=== PATIENT | female | born 1950 | race Caucasian/White ===

== ENCOUNTER 2020-03-21 14:38 | Emergency (ER) | payer OTHER ==
--- NOTE | 2020-03-21 14:42 | PDOC ---
Rapid Medical Evaluation Time Seen by Provider: 03/21/20 14:40 Medical Evaluation: 03/21/20 14:40 I have performed a brief in-person evaluation of this patient. The patient presents with a chief complaint of:R knee pain/swelling x 6 days. H/o arthritis, finished tramadol last week. Took naproxen today w/ no relief. No f/c. No trauma. H/o HTN and HLD Pertinent physical exam findings:stable, NAD I have ordered the following:nothing The patient will proceed to the ED for further evaluation. Discharge Disposition - Diagnosis Knee pain Qualifiers: Chronicity: acute Laterality: right Qualified Code(s): M25.561 - Pain in right knee - Referrals - Patient Instructions - Post Discharge Activity
[2020-03-21 14:44] VITALS: BP 179/83; PULSE 85; TEMP 98.3; BMI 39.0
--- NOTE | 2020-03-21 15:33 | PDOC ---
History of Present Illness - General Chief Complaint: Pain Stated Complaint: RT KNEE PAIN Time Seen by Provider: 03/21/20 14:40 - History of Present Illness Initial Comments: 03/21/20 15:31 69-year-old female with a past medical history of hypertension diabetes and dyslipidemia presents for evaluation of right knee pain. Known osteoarthritis underwent gel injections without much relief she comes in today with an exacerbation. No systemic symptoms Past History - Medical History Allergies/Adverse Reactions: Allergies Allergy/AdvReac Type Severity Reaction Status Date / Time No Known Allergies Allergy Verified 03/21/20 14:44 COPD: No HTN: Yes Hypercholesterolemia: Yes - Surgical History Abdominal Surgery: Yes - Psycho-Social/Smoking History Smoking History: Never smoked - Substance Abuse Hx (Audit-C & DAST Scrn) How often the patient has a drink containing alcohol: Never Score: In Men: 4 or > Positive; In Women: 3 or > Positive: 0 Screen Result (Pos requires Nsg. Audit-10AR): Negative Review of Systems - Review of Systems Constitutional: No: Chills, Diaphoresis, Fever, Night Sweats Musculoskeletal: Yes: Joint Pain *Physical Exam - Vital Signs Last Vital Signs Temp Pulse Resp BP Pulse Ox 98.3 F 85 18 179/83 H 100 03/21/20 14:41 03/21/20 14:41 03/21/20 14:41 03/21/20 14:41 03/21/20 14:41 - Physical Exam 03/21/20 15:32 Right knee skin color and temperature normal. Scant intra-articular effusion extensor mechanism is intact. Range of motion 0-90 beyond that causes pain. Diffuse tenderness out of proportion to the examination no instability thigh and calf soft nontender no gross sensorimotor deficits negative straight leg raise test neurovascular intact Medical Decision Making - Medical Decision Making 03/21/20 15:32 Exacerbation of right knee osteoarthritis return to orthopedic surgery consider cortisone injection versus other interventions 03/21/20 15:32 Patient took Tylenol today. I advised her to avoid anti-inflammatories because of her hypertension. I have reviewed the pathophysiology with the patient. They are in agreement with the treatment plan all questions were answered to their satisfaction. Understanding for follow-up without fail was also conveyed to the patient. Again they are in agreement. Discharge - Discharge Information Problems reviewed: Yes Clinical Impression/Diagnosis: Knee pain Qualifiers: Chronicity: acute Laterality: right Qualified Code(s): M25.561 - Pain in right knee Condition: Stable Disposition: HOME - Admission No - Follow up/Referral Referrals: Allyson Murcia MD [Primary Care Provider] - Vic Phan DO [Staff Physician] - - Patient Discharge Instructions - Post Discharge Activity
== END 2020-03-21 15:36 | disposition home or self-care (01) ==
LOC: JERFT 14:38
DX: M25.561 Pain in right knee (principal)
CPT/HCPCS: 99282-25

== ENCOUNTER 2020-07-09 08:06 | Inpatient (IN) | payer OTHER ==
--- OUTSIDE RECORDS SUMMARY | 2020-06-25 08:46 | XMS ---
:1950 Author Organization [facility] Support Name Relationship Address Phone RE Unavailable Unavailable Unavailable PIERRE SCOTT DAUGHTER [address] [place] [address] PIERRE SCOTT Child [address] [place] [address] Re-disclosure Warning The records that you are about to access may contain information from federally- assisted alcohol or drug abuse programs. If such information is present, then the following federally mandated warning applies: This information has been disclosed to you from records protected by federal confidentiality rules (42 CFR part 2). The federal rules prohibit you from making any further disclosure of this information unless further disclosure is expressly permitted by the written consent of the person to whom it pertains or as otherwise permitted by 42 CFR part 2. A general authorization for the release of medical or other information is NOT sufficient for this purpose. The Federal rules restrict any use of the information to criminally investigate or prosecute any alcohol or drug abuse patient.The records that you are about to access may contain highly sensitive health information, the redisclosure of which is protected by Article 27-F of the [facility] Public Health law. If you continue you may haveaccess to information: Regarding HIV / AIDS; Provided by facilities licensed or operated by the [facility] Office of Mental Health; or Provided by the [facility] Office for People With Developmental Disabilities. If such information is present, then the following [facility] mandated warning applies: This information has been disclosed to you from confidential records which are protected by state law. State law prohibits you from making any further disclosure of this information without the specific written consent of the person to whom it pertains, or as otherwise permitted by law. Any unauthorized further disclosure in violation of state law may result in a fine or snf sentence or both. A general authorization for the release of medical or other information is NOT sufficient authorization for further disclosure. Insurance Providers Payer name Policy type Policy ID Covered Covered democrat's Policy P jordy / Coverage democrat ID relationship to [facility] Inf ormation type henrandez MEDICAID [id number] SP [id number] [facility] [id number] SP [id number] MEDICARE
[2020-07-05 15:52] VITALS: BMI 41.0
--- OUTSIDE RECORDS SUMMARY | 2020-07-09 08:11 | XMS ---
:1950 Author Organization [facility] Support Name Relationship Address Phone RE Unavailable Unavailable Unavailable PIERRE SCOTT DAUGHTER [address] [phone] [place] [address] PIERRE SCOTT Child [address] [place] [address] Re-disclosure Warning The records that you are [...] is protected by Article 27-F of the [facility] Public Health law. If you continue you may haveaccess to information: Regarding HIV / AIDS; Provided by facilities licensed or operated by the [facility] Office of Mental Health; or Provided by the [facility] Office for People With Developmental Disabilities. If such information is present, then the following [facility] mandated warning applies: This information has been [...] law may result in a fine or half-way sentence or both. A general authorization for the release of medical or other information is NOT sufficient authorization for further disclosure. Insurance Providers Payer name Policy type Policy ID Covered Covered libertarian's Policy P jordy / Coverage libertarian ID relationship to [employer] ormation type hernandez [employer] [id number] SP [id number] MEDICARE MEDICAID [id number] SP [id number] [employer] [id number] SP [id number] MEDICARE Results ID Date Data Source [id number] 07/05/2020 12:24:00 PM EDT [facility] Name Value Range Interpretation Description Data Sup porting Code Source(s) Document(s ) SARS [facility] coronavirus 2 RNA This lab was ordered by BECCA ram [facility] and reported by [facility]. Procedure
[2020-07-09] MEDS ORDERED: VANCOMYCIN 1,000 MG VIAL (RESTRICTED TO ID ONLY) ONE ×2 (08:45→09:13)
[2020-07-09] MEDS ORDERED: ceFAZolin SODIUM 1 GM VIAL ONE (08:45)
[2020-07-09] MEDS ORDERED: PROPOFOL 20 ML ONE ×4 (08:45→13:16)
[2020-07-09] MEDS ORDERED: SODIUM CHLORIDE 0.9% P/F 10 ML VIAL IJ ONE ×2 (08:49→09:07)
[2020-07-09] MEDS ORDERED: MIDAZOLAM HCL 2 MG/2 ML SINGLE DOSE VIAL ONE ×3 (09:06→11:35)
[2020-07-09] MEDS ORDERED: BUPIVACAINE LIPOSOME/PF (EXPAREL) 266 MG/20 ML VIAL ONE (09:07)
--- NOTE | 2020-07-09 09:53 | HP ---
History & Physical Update - History History: No Change - Physical Physical: No Change - Assessment Assessment: No Change - Plan Plan: No Change
[2020-07-09] MEDS ORDERED: ACETAMINOPHEN INJECTION 100 ML IVPB ONE (10:15)
[2020-07-09] MEDS ORDERED: DEXAMETHASONE SOD PHOSPHATE 4 MG/1 ML VIAL ONE (10:41)
[2020-07-09] MEDS ORDERED: ONDANSETRON 4 MG/2 ML VIAL ONE ×3 (10:41→14:05)
[2020-07-09] MEDS ORDERED: PHENYLEPHRINE HCL 10 MG/1 ML SINGLE DOSE VIAL ONE (11:12)
[2020-07-09] MEDS ORDERED: VANCOMYCIN 1,000 MG VIAL (RESTRICTED TO ID ONLY) IVPB ONE ×2 (12:46→13:10)
[2020-07-09] MEDS ORDERED: TRANEXAMIC ACID 1000 MG/10 ML VIAL ONE (13:01)
[2020-07-09] MEDS ORDERED: LIDOCAINE HCL/PF 2% SDV 5ML VIAL ONE (13:22)
[2020-07-09] MEDS: HYDROmorphone HCL 0.5 MG/0.5 ML SYRINGE ONE ×2 (14:05→15:20)
[2020-07-09] MEDS ORDERED: HYDROmorphone HCL 0.5 MG/0.5 ML SYRINGE ONE ×2 (14:05→14:58)
[2020-07-09] MEDS ORDERED: oxyCODONE HCL 5 MG TABLET PO PRN ×2 (14:06)
[2020-07-09] MEDS ORDERED: ONDANSETRON 4 MG/2 ML VIAL IVPUSH PRN ×2 (14:06→14:13)
[2020-07-09] MEDS ORDERED: HYDROmorphone HCl 2 MG/ML VIAL IVPUSH PRN ×2 (14:08→14:11)
[2020-07-09] MEDS ORDERED: MAG HYDROX/AL HYDROX/SIMETH 30 ML UNIT-DOSE CUP PO PRN (14:13)
[2020-07-09] MEDS ORDERED: ACETAMINOPHEN 325 MG TABLET (FP) PO SCH (14:15)
[2020-07-09] MEDS ORDERED: LACTATED RINGERS SOLUTION 1,000 ML IV SCH (14:15)
--- NOTE | 2020-07-09 14:34 | OPR ---
TITLE OF OPERATION: Right Total Knee Arthroplasty PREOPERATIVE DIAGNOSIS: Right Knee Osteoarthritis POSTOPERATIVE DIAGNOSIS: Right Knee Osteoarthritis SURGEON: Vic Phan DO HOT BALLER: Garo John DO ANESTHESIA: Spinal anesthesia with regional block SPECIMEN: bone cuts PROSTHETIC DEVICE/IMPLANT: [place] Triathlon X3 Asymmetric patella size, 9mm thickness; Triathlon Posterior Stabilized Femur Size 2; Triathlon Tibial Baseplate Size 3; Triathlon Tibial Bearing insert - PS - 16 mm thickness. COMPLICATIONS: none EBL: 150mL TOURNIQUET TIME: 120 mins INDICATIONS FOR SURGERY: Dione Parnell is a 69 year old female who presented in the preoperative setting with a chief complaint of severe right knee osteoarthritis with severe knee pain, and a notable varus deformity. The patient was initially treated non- operatively with injections, medications, and physical therapy, but continued to have severe pain and ambulatory dysfunction. She was therefore indicated for a right total knee replacement with MAKOplasty robotic navigation. The risks and benefits of surgery and anesthesia were discussed in detail including but not limited to infection, continued pain, bleeding, blood clot, scarring/arthrofibrosis, damage to vessels and nerves, instability or loosening of implant, difficulty ambulating, alla-prosthetic fracture, failure to obtain the desired result, failure to heal, failure to return to significant activity, need for additional surgery in the future. Understanding the risks and benefits, the patient opted to proceed with surgical management. SURGEON'S NARRATIVE: On the day of surgery, the patient was taken to the operating room and placed on the OR table. Spinal anesthesia was administered by the anesthesiologist. The patient was then positioned supine on the table, and all bony prominences were padded. The knee was then prepped and draped in the usual sterile fashion, and IV antibiotics were given for infection prophylaxis. A surgical time-out was then performed with the team, and the patient's identity, procedure, side, availability of implants, and the administration of antibiotics were performed. With the knee flexed, two parallel bicortical self-drilling pins were placed in the tibial diaphysis after making stab incisions and bluntly dissecting down to bone. Two pins were then placed in the distal supracondylar femur. The knee was exanguinated and tourniquet inflated. A midline incision was then made and carried down through the subcutaneous fat to the underlying retinaculum. A medial parapatellar arthrotomy was performed. This was followed by a subperiosteal dissection of the tissue off the proximal, medial tibia. A portion of the fat pad was removed from under the patellar tendon, and a small portion of fat was excised off the distal supracondylar femur. Electrocautery was used to achieve hemostasis. The knee was then flexed further and the anterior horn of the lateral meniscus was released from the midline. Next, the anterior and posterior cruciate ligaments were transected. Nodular synovitis and Grade 4 changes were noted diffusely throughout the knee. A synovectomy was performed. Femoral and tibial checkpoints were then placed in the appropriate location using a drill. The [email or web address] navigation arrays were attached to the femoral and tibial pins and the lower extremity was then registered to the robotic naviga tion device using various joint movements, as well as inputting several dozen reference points. The knee was then taken through a full range of motion with a corrective force applied. Alignment in varus and valgus, as well as flexion and extension, and soft tissue balance was measured in various positions. The navigation device showed a numerical and graphic representation of the soft tissue balance. The components were repositioned virtually using the software until optimal soft tissue balance was achieved on the screen. Once this was accomplished, the final plan was saved and sent to the robot. Self-retaining retractors were then placed at the joint line for exposure and protection of the collateral ligaments. The robot was brought into the sterile field and registered with the navigation device. The robotic arm with attached oscillating saw blade was then used to perform femoral and tibial bone cuts as per the saved software plan. The femoral box cut was made using the appropriatel y - sized manual cutting guide. The knee was then irrigated. Trial components were placed and the knee was taken through a full range of motion to assess soft tissue balance and alignment. The range of motion was found to be excellent and the soft tissue balance was optimal and according to plan. The knee was then put into extension and the patella everted. The synovium around the patella was circumscribed with electrocautery. A caliper was used to measure the patellar thickness, and a saw was then used to resect the patella using a patella resection guide. The cut was then sized and drilled for the appropriate patellar button, with care taken to medialize it. A trial patella was then placed and the knee was again taken through a full range of motion. The knee was found to have both good balance and good patellar tracking. All of the components were removed except the tibial base plate. The appropriate instrumentation was used to drill and punch the proximal tibia for the keel of the final component. All bony surfaces were cleaned with the pulsatile lavage and dried. Bone cement was then prepared on the back table, and the final components were cemented in place in the usual fashion. Extruded cement was removed. The polyethylene trial was placed, the knee was put into extension, and axial pressure was applied for compression while the cement hardened. The patellar button was similarly cemented into place. Once the cement had hardened, the knee was taken through a full range of motion to assess stability, balance, and patellar tracking. Multiple polyethlene trials including a TS insert were trialed. A 16mm polyethylene insert was found to be optimal and the trial polyethylene was exchanged for the appropriately sized real implant. An approximately three-minute diluted betadine soak was performed, followed by thorough pulsatile irrigation with normal saline. One gram of vancomycin powder was then spread around the joint tissues. A periarticular injection was used to locally infiltrate the capsular tissues surrounding the implant and prosthesis. Once this was done, the tourniquet was let down and all bleeders were cauterized. The parapatellar incision was closed with #1 Vicryl suture in a simple stitch fashion, and the subcuticular skin was closed with 0 Vicryl, 2-0 Vicryl suture, and the skin with delroy. The tibial and femoral pins were removed and the incisions were irrigated thoroughly, then closed with 3-0 Monocryl suture. A sterile Aquacell dressing and DEAN bandage was placed and the patient was placed in VONDA stockings and bilateral SCD's. She tolerated procedure well and arrived in recovery in stable condition. Postoperative Crews: Pain Control DVT Prophylaxis (ASA 325MG BID x 6 weeks; SCDs while in bed, encourage early ambulation) WBAT/Physical Therapy daily D/C Delroy POD 14 F/U Daily AM Labs Will see her in my office on POD 14 for a post-operative visit, wound check, and staple removal Medical management Dispo Planning
[2020-07-09 14:40] LABS: MCH 25.8 pg (25.7-33.7); MCHC 31.5 g/dl (32.0-36.0); MEAN PLT VOLUME 9.1 fl (7.5-11.1); PLATELET COUNT 419 K/MM3 (134-434); RBC 4.26 M/mm3 (3.60-5.2); RDW 16.7 % (11.6-15.6); WHITE BLOOD COUNT 11.9 K/mm3 (4.0-10.8)
--- NOTE | 2020-07-09 14:43 | HP ---
CHIEF COMPLAINT: Right knee pain Ortho: Dr. Phan HISTORY OF PRESENT ILLNESS: 69 year-old female with a PMH significant for HTN, HLD, GERD, and right knee osteoarthritis s/p right total knee arthroplasty today with Dr. Phan. Recent Travel: No PAST MEDICAL HISTORY: Hypertension Hyperlipidemia GERD Osteoarthritis PAST SURGICAL HISTORY: Breast reconstruction Cholecystectomy Gastric bypass Tubal ligation Social History: single, lives in an apartment, 3 children Smoking: quit 2009 Alcohol: no Drugs: no Family history: mother hypertension/arthritis/artificial heart valve/varicose veins; father unknown Allergies No Known Drug Allergies Allergy (Verified 07/05/20 15:35) HOME MEDICATIONS: Home Medications Medication Instructions Recorded Acetaminophen [Tylenol] 650 mg PO ASDIR PRN 07/05/20 Atorvastatin Ca [Lipitor] 20 mg PO DAILY 07/05/20 Gabapentin 300 mg PO TID PRN 07/05/20 Lisinopril/Hydrochlorothiazide 1 each PO DAILY 07/05/20 [Lisinopril-Hctz 10-12.5 mg Tab] Mv-Mn/FA/Coq10/Lycopene/Lutein 1 each PO BID 07/05/20 [Theragran-M Premier 50+ Caplet] Omeprazole 20 mg PO DAILY 07/05/20 REVIEW OF SYSTEMS: unable to obtain, patient seen in PACU, somnolent from anesthesia PHYSICAL EXAMINATION Vital Signs - 24 hr 07/09/20 07/09/20 08:26 14:00 Temperature 98 F 98.7 F Pulse Rate 94 H 98 H Respiratory 18 16 Rate Blood Pressure 118/75 117/74 O2 Sat by Pulse 96 97 Oximetry (%) GENERAL: Somnolent but easily arousable, following commands, moving all extremities HEAD: Normal with no signs of trauma. EYES: Pupils equal, round and reactive to light, extraocular movements intact, sclera anicteric, conjunctiva clear. No lid lag. LUNGS: Breath sounds equal, clear to auscultation bilaterally. No wheezes, and no crackles. No accessory muscle use. HEART: Regular rate and rhythm, normal S1 and S2 ABDOMEN: Soft, nontender, not distended UPPER EXTREMITIES: 2+ pulses, warm, well-perfused. No cyanosis. No clubbing. No peripheral edema. RIGHT LOWER EXTREMITY: 2+ pulses, warm, well-perfused. Surgical dressings c/d/i, ice packs NEUROLOGICAL: Cranial nerves II-XII intact. Pre op BUN15 Cr 0.9 Hgb 10.9 Intra op EBL 150mL ASSESSMENT/PLAN: 69 year-old female with a PMH significant for HTN, HLD, GERD, and right knee osteoarthritis s/p right total knee arthroplasty today with Dr. Phan. Right total knee arthroplasty --POD #0 --perioperative antibiotics per surgery --pain management per surgery --ASA 325mg BID --protonix --bowel regimen --incentive spirometry Hypertension --continue Lisinopril 10mg daily; hold HCTZ Hyperlipidemia -continue atorvastatin GERD --protonix FEN Fluids: LR@125mL/hr Electrolytes: replete as indicated Nutrition: regular diet DVT prophylaxis: OOB, ambulation, SCDs, TEDs, ASA 325mg BID Physical therapy Dispo: continues to require inpatient care. Full code. Family Medical History Family History: As Documented Visit type - Medication Review Med list reviewed for High Risk Meds patients 65 and older: Yes - Emergency Visit Emergency Visit: No - New Patient This patient is new to me today: Yes Date on this admission: 07/10/20 - Critical Care Critical Care patient: No
[2020-07-09] MEDS ORDERED: GABAPENTIN 300 MG CAPSULE PO PRN (14:50)
[2020-07-09] MEDS ORDERED: HYDROmorphone *PCA* 10MG/50ML DISP.SYRIN PCA SCH ×2 (15:15→16:11)
[2020-07-09] MEDS ORDERED: PCA PUMP NR ONE (15:18)
[2020-07-09] MEDS ORDERED: NALOXONE HCL 0.4 MG/ML VIAL ONE (16:49)
[2020-07-09] MEDS: ACETAMINOPHEN 1000 MG/100 ML VIAL (NON FORMULARY) IVPB SCH (18:19)
[2020-07-09] MEDS: CEFAZOLIN 2 GM/D5W 2 GM/50 ML ML IVPB SCH (18:19)
[2020-07-09] MEDS: CELECOXIB 200 MG CAPSULE PO SCH (21:27)
[2020-07-09] MEDS: GABAPENTIN 300 MG CAPSULE PO SCH (21:27)
[2020-07-09] MEDS: SENNOSIDES/DOCUSATE COMBO (SENNA PLUS) TABLET (UD) PO SCH (21:27)
[2020-07-09] MEDS ORDERED: oxyCODONE HCL 10 MG SUSTAINED ACTING TABLET PO SCH (22:00)
[2020-07-09] MEDS: oxyCODONE HCL 5 MG TABLET PO PRN (22:55)
[2020-07-10] MEDS: ACETAMINOPHEN 1000 MG/100 ML VIAL (NON FORMULARY) IVPB SCH ×3 (01:20→15:14)
[2020-07-10] MEDS: CEFAZOLIN 2 GM/D5W 2 GM/50 ML ML IVPB SCH ×2 (01:22→09:49)
--- NOTE | 2020-07-10 07:42 | PN ---
Progress Note (short form) - Note Progress Note: ORTHOPEDIC SURGERY PROGRESS NOTE Department of Orthopedic Surgery SUBJECTIVE No acute events overnight. No complaints currently. Denies chest pain, shortness of breath, or calf pain. No nausea or vomiting. Tolerating oral intake. Pain control difficult overnight, but improving. PHYSICAL EXAMINATION General: Alert, oriented, cooperative and no distress. Lower Extremity: Dressing/brace intact; No drainage. Skin intact, no lesions, rashes or ulcers noted. Muscle mass equal and symmetric to contralateral side. No atrophy noted. No masses or effusions noted. EHL/TA/GS motor intact; SILT distally; 2+ DP pulses; Cap refill brisk. DVT Exam: No evidence of DVT seen on physical exam; No cords or calf tenderness; No significant calf/ankle edema. Intake & Output 07/08/20 07/09/20 07/10/20 23:59 23:59 23:59 Intake Total 1300 Output Total 150 300 Balance 1150 -300 Intake: IV 1300 Output: Urine 300 Void 300 Estimated Blood Loss 150 Other: Voiding Method Bedpan Toilet Weight 210 lb Height 5 ft Body Mass Index (BMI) 41.0 Weight Measurement Method Standing Scale Active Medications Generic Name Dose Route Start Last Admin Trade Name Freq PRN Reason Stop Dose Admin Acetaminophen 1,000 mg 07/09/20 19:00 07/10/20 06:26 Ofirmev Injection - IVPB 07/10/20 13:01 1,000 mg Q6H GAYATRI Administration Al Hydroxide/Mg Hydroxide 30 ml 07/09/20 14:13 Mylanta Oral Suspension - PO Q4H PRN DYSPEPSIA Aspirin 325 mg 07/10/20 22:00 Asa - PO BID GAYATRI Atorvastatin Calcium 20 mg 07/10/20 22:00 Lipitor - PO HS GAYATRI Celecoxib 200 mg 07/09/20 22:00 07/09/20 21:27 Celebrex - PO 200 mg BID GAYATRI Administration Gabapentin 300 mg 07/09/20 22:00 07/09/20 21:27 Neurontin - PO 07/12/20 21:59 300 mg BID GAYATRI Administration Gabapentin 300 mg 07/09/20 14:50 Neurontin - PO TID PRN PAIN Lactated Ringer's 1,000 mls @ 75 mls/hr 07/09/20 14:15 Lactated Ringers Solution IV ASDIR GAYATRI Cefazolin Sodium/Dextrose 2 gm in 50 mls @ 200 mls/hr 07/09/20 18:30 07/10/20 01:22 Ancef 2 Gm Premixed Ivpb - IVPB 07/10/20 10:14 200 mls/hr Q8H-IV GAYATRI Administration Lisinopril 10 mg 07/10/20 10:00 Prinivil PO DAILY PENDING SALE TO [facility] Multivitamins/Minerals/Vitamin C 1 tab 07/10/20 10:00 Tab-A-Vit - PO DAILY PENDING SALE TO [facility] Ondansetron HCl 4 mg 07/09/20 14:13 07/09/20 14:15 Zofran Injection IVPUSH 4 mg Q6H PRN Administration NAUSEA Oxycodone HCl 5 mg 07/09/20 16:41 Roxicodone - PO Q3H PRN PAIN LEVEL 1-5 Oxycodone HCl 10 mg 07/09/20 16:41 07/09/20 22:55 Roxicodone - PO 10 mg Q3H PRN Administration PAIN LEVEL 6-10 Pantoprazole Sodium 40 mg 07/10/20 10:00 Protonix - PO DAILY PENDING SALE TO [facility] Senna/Docusate Sodium 2 tablet 07/09/20 22:00 07/09/20 21:27 Pericolace - PO 2 tablet BID GAYATRI Administration Vital Signs (last) Temp Pulse Resp BP Pulse Ox 98.4 F 109 H 16 101/48 L 100 07/10/20 06:00 07/10/20 06:00 07/10/20 06:00 07/10/20 06:00 07/10/20 06:00 IMAGING Postoperative antibiotics show metal implants in appropriate alignment with no signs of loosening. ASSESSMENT AND PLAN Dione Parnell is a 69 year old female status post right total knee arthroplasty. POD#1. - FU AM labs - Postoperative antibiotics complete - Pain control: Transition to oral pain medications - DVT prophylaxis - Ice/Elevation - Elevate HOB, encourage oral intake - Appreciate medical management (Nutrition optimization, decubitus precautions heel/sacrum) - PT/OT; WBAT - Dispo planning
[2020-07-10 08:21] LABS: HEMATOCRIT 28.4 % (32.4-45.2); MCH 26.2 pg (25.7-33.7); MCHC 31.8 g/dl (32.0-36.0); MEAN CELL VOLUME 82.4 fl (80-96); PLATELET COUNT 327 K/MM3 (134-434); RBC 3.45 M/mm3 (3.60-5.2); RDW 16.3 % (11.6-15.6); WHITE BLOOD COUNT 12.8 K/mm3 (4.0-10.8)
[2020-07-10] MEDS: LACTATED RINGERS SOLUTION 1,000 ML IV SCH ×2 (08:21→15:13)
[2020-07-10 08:30] LABS: CALCIUM 8.2 mg/dl (8.5-10); CREATININE 1.6 mg/dl (0.55-1.3); MAGNESIUM 1.8 mg/dL (1.8-2.4); POTASSIUM 4.2 mmol/L (3.5-5.1)
[2020-07-10] MEDS: CELECOXIB 200 MG CAPSULE PO SCH ×2 (09:48→21:26)
[2020-07-10] MEDS: GABAPENTIN 300 MG CAPSULE PO SCH ×2 (09:48→21:27)
[2020-07-10] MEDS: SENNOSIDES/DOCUSATE COMBO (SENNA PLUS) TABLET (UD) PO SCH ×2 (09:49→21:27)
[2020-07-10] MEDS: PANTOPRAZOLE 40 MG TABLET PO SCH (09:49)
[2020-07-10] MEDS: MULTIVITAMINS (DAILY MVI) TABLET (FP) PO SCH (09:49)
[2020-07-10] MEDS: LISINOPRIL 10 MG TABLET PO SCH (09:50)
--- NOTE | 2020-07-10 09:59 | PN ---
Physical Exam: SUBJECTIVE: Patient seen and examined oob to chair. Complaining of pain. OBJECTIVE: Vital Signs Period Temp Pulse Resp BP Sys/Mallory Pulse Ox Last 24 Hr 97.4 F-98.9 F 89-110 12-18 96-134/48-99 93-100 GENERAL: The patient is awake, alert, and fully oriented, in no acute distress. HEAD: Normal with no signs of trauma. EYES: PERRL, extraocular movements intact, sclera anicteric, conjunctiva clear. No ptosis. LUNGS: Breath sounds equal, clear to auscultation bilaterally, no wheezes, no crackles, no accessory muscle use HEART: Regular rate and rhythm, S1, S2 without murmur, rub or gallop. ABDOMEN: Soft, nontender, nondistended, RLE: Surgical dressng c/d/i; ice packs; +flex/extend toes, sensory intact NEUROLOGICAL: Cranial nerves II through XII grossly intact. Normal speech Laboratory Results - last 24 hr 07/09/20 07/10/20 07/10/20 14:27 07:12 07:12 WBC 11.9 H 12.8 H RBC 4.26 3.45 L Hgb 11.0 9.0 L Hct 35.0 28.4 L D MCV 82.0 82.4 MCH 25.8 26.2 MCHC 31.5 L 31.8 L RDW 16.7 H 16.3 H Plt Count 419 327 MPV 9.1 9.0 Sodium 137 Potassium 4.2 Chloride 97 L Carbon Dioxide 28 Anion Gap 12 BUN 36.0 H Creatinine 1.6 H Est GFR (CKD-EPI)AfAm 37.98 Est GFR (CKD-EPI)NonAf 32.77 Random Glucose 127 H Calcium 8.2 L Magnesium 1.8 Active Medications Generic Name Dose Route Start Last Admin Trade Name Freq PRN Reason Stop Dose Admin Acetaminophen 1,000 mg 07/09/20 19:00 07/10/20 06:26 Ofirmev Injection - IVPB 07/10/20 13:01 1,000 mg Q6H GAYATRI Administration Al Hydroxide/Mg Hydroxide 30 ml 07/09/20 14:13 Mylanta Oral Suspension - PO Q4H PRN DYSPEPSIA Aspirin 325 mg 07/10/20 22:00 Asa - PO BID GAYATRI Atorvastatin Calcium 20 mg 07/10/20 22:00 Lipitor - PO HS GAYATRI Celecoxib 200 mg 07/09/20 22:00 07/10/20 09:48 Celebrex - PO 200 mg BID GAYATRI Administration Gabapentin 300 mg 07/09/20 22:00 07/10/20 09:48 Neurontin - PO 07/12/20 21:59 300 mg BID GAYATRI Administration Gabapentin 300 mg 07/09/20 14:50 Neurontin - PO TID PRN PAIN Lactated Ringer's 1,000 mls @ 75 mls/hr 07/09/20 14:15 07/10/20 08:21 Lactated Ringers Solution IV Not Given ASDIR GAYATRI Cefazolin Sodium/Dextrose 2 gm in 50 mls @ 200 mls/hr 07/09/20 18:30 07/10/20 09:49 Ancef 2 Gm Premixed Ivpb - IVPB 07/10/20 10:14 200 mls/hr Q8H-IV GAYATRI Administration Lisinopril 10 mg 07/10/20 10:00 07/10/20 09:50 Prinivil PO Not Given DAILY G[facility]ATRI Multivitamins/Minerals/Vitamin C 1 tab 07/10/20 10:00 07/10/20 09:49 Tab-A-Vit - PO 1 tab DAILY GAYATIR Administration Ondansetron HCl 4 mg 07/09/20 14:13 07/09/20 14:15 Zofran Injection IVPUSH 4 mg Q6H PRN Administration NAUSEA Oxycodone HCl 5 mg 07/09/20 16:41 Roxicodone - PO Q3H PRN PAIN LEVEL 1-5 Oxycodone HCl 10 mg 07/09/20 16:41 07/09/20 22:55 Roxicodone - PO 10 mg Q3H PRN Administration PAIN LEVEL 6-10 Pantoprazole Sodium 40 mg 07/10/20 10:00 07/10/20 09:49 Protonix - PO 40 mg DAILY GAYATRI Administration Senna/Docusate Sodium 2 tablet 07/09/20 22:00 07/10/20 09:49 Pericolace - PO 2 tablet BID GAYATRI Administration Pre op BUN15 Cr 0.9 Hgb 10.9 Intra op EBL 150mL ASSESSMENT/PLAN: 69 year-old female with a PMH significant for HTN, HLD, GERD, and right knee osteoarthritis s/p right total knee arthroplasty. Right total knee arthroplasty --POD #1 --perioperative antibiotics per surgery --pain management per surgery, on PO regimen --ASA 325mg BID --protonix --bowel regimen --incentive spirometry Hypertension --BP on low side, hold lisinopril; hold HCTZ; NS x 500cc bolus x 1 Hyperlipidemia -continue atorvastatin GERD --protonix FEN Fluids: LR@75mL/hr Electrolytes: replete as indicated Nutrition: regular diet DVT prophylaxis: OOB, ambulation, SCDs, TEDs, ASA 325mg BID Physical therapy Dispo: continues to require inpatient care. Full code. Visit type - Emergency Visit Emergency Visit: No - New Patient This patient is new to me today: No - Critical Care Critical Care patient: No - Discharge Referral Referred to [facility] Med [facility] No - Medication Review Med list reviewed for High Risk Meds patients 65 and older: Yes
[2020-07-10] MEDS ORDERED: PATIENT'S OWN MEDICATION (NON-FORMULARY) (Lisinopril/Hydrochlorothiazide [Lisinopril-Hctz PO SCH (10:00)
[2020-07-10] MEDS ORDERED: SODIUM CHLORIDE 500 ML IV STA (10:04)
[2020-07-10] MEDS: oxyCODONE HCL 5 MG TABLET PO PRN ×4 (11:14→23:23)
--- NOTE | 2020-07-10 14:52 | PN ---
Progress Note (short form) - Note Progress Note: 69F POD1 s/p R TKR under spinal and peripheral nerve blocks. Pt states that pain is moderately well controlled and denies any anesthetic complications. AVSS. Continue current regimen.
[2020-07-10] MEDS: ASPIRIN 325 MG TABLET PO SCH (21:26)
[2020-07-10] MEDS: ATORVASTATIN CA 20 MG TABLET (FP) PO SCH (21:27)
[2020-07-11] MEDS: oxyCODONE HCL 5 MG TABLET PO PRN ×3 (06:00→21:31)
--- NOTE | 2020-07-11 07:59 | PN ---
Progress Note (short form) - Note Progress Note: ORTHOPEDIC SURGERY PROGRESS NOTE Department of Orthopedic Surgery SUBJECTIVE No acute events overnight. No complaints currently. Denies chest pain, shortness of breath, or calf pain. No nausea or vomiting. Tolerating oral intake. Pain control difficult overnight, but improving. PHYSICAL EXAMINATION General: Alert, oriented, cooperative and no distress. Lower Extremity: Dressing/brace intact; No drainage. Skin intact, no lesions, rashes or ulcers noted. Muscle mass equal and symmetric to contralateral side. No atrophy noted. No masses or effusions noted. EHL/TA/GS motor intact; SILT distally; 2+ DP pulses; Cap refill brisk. DVT Exam: No evidence of DVT seen on physical exam; No cords or calf tenderness; No significant calf/ankle edema. Intake & Output 07/09/20 07/10/20 07/11/20 23:59 23:59 23:59 Intake Total 1300 1100 950 Output Total 150 300 Balance 1150 800 950 Intake: IV 1300 750 Lactated Ringers Solution 750 1,000 ml @ 75 mls/hr IV ASDIR GAYATRI Rx#:[id number] Oral 1100 200 Output: Urine 300 Void 300 Estimated Blood Loss 150 Other: Voiding Method Bedpan Toilet Toilet # Unmeasured Voids Void 1 2 Bowel Movement No No Weight 210 lb Height 5 ft Body Mass Index (BMI) 41.0 Weight Measurement Method Standing Scale Active Medications Generic Name Dose Route Start Last Admin Trade Name Freq PRN Reason Stop Dose Admin Al Hydroxide/Mg Hydroxide 30 ml 07/09/20 14:13 Mylanta Oral Suspension - PO Q4H PRN DYSPEPSIA Aspirin 325 mg 07/10/20 22:00 07/10/20 21:26 Asa - PO 325 mg BID GAYATRI Administration Atorvastatin Calcium 20 mg 07/10/20 22:00 07/10/20 21:27 Lipitor - PO 20 mg HS GAYATRI Administration Celecoxib 200 mg 07/09/20 22:00 07/10/20 21:26 Celebrex - PO 200 mg BID GAYATRI Administration Gabapentin 300 mg 07/09/20 22:00 07/10/20 21:27 Neurontin - PO 07/12/20 21:59 300 mg BID GAYATRI Administration Gabapentin 300 mg 07/09/20 14:50 Neurontin - PO TID PRN PAIN Lactated Ringer's 1,000 mls @ 75 mls/hr 07/09/20 14:15 07/10/20 15:13 Lactated Ringers Solution IV 75 mls/hr ASDIR GYAATRI Administration Lisinopril 10 mg 07/10/20 10:00 07/10/20 09:50 Prinivil PO Not Given DAILY [facility] Multivitamins/Minerals/Vitamin C 1 tab 07/10/20 10:00 07/10/20 09:49 Tab-A-Vit - PO 1 tab DAILY GAYATRI Administration Ondansetron HCl 4 mg 07/09/20 14:13 07/09/20 14:15 Zofran Injection IVPUSH 4 mg Q6H PRN Administration NAUSEA Oxycodone HCl 5 mg 07/09/20 16:41 07/11/20 06:00 Roxicodone - PO 5 mg Q3H PRN Administration PAIN LEVEL 1-5 Oxycodone HCl 10 mg 07/09/20 16:41 07/10/20 23:23 Roxicodone - PO 10 mg Q3H PRN Administration PAIN LEVEL 6-10 Pantoprazole Sodium 40 mg 07/10/20 10:00 07/10/20 09:49 Protonix - PO 40 mg DAILY [facility] Administration Senna/Docusate Sodium 2 tablet 07/09/20 22:00 07/10/20 21:27 Pericolace - PO 2 tablet BID GAYATRI Administration Vital Signs (last) Temp Pulse Resp BP Pulse Ox 99.8 F H 108 H 18 134/57 L 94 L 07/11/20 06:26 07/11/20 06:26 07/11/20 06:26 07/11/20 06:26 07/11/20 06:26 Laboratory 07/10/20 07:12 ASSESSMENT AND PLAN Dione Parnell is a 69 year old female status post right total knee arthroplasty. POD#2. - FU AM labs - Monitor Vitals - Pain control: Transition to oral pain medications; add oxycontin BID with oxycodone PRN for breakthrough pain - DVT prophylaxis - Ice/Elevation - Elevate HOB, encourage oral intake - Appreciate medical management (Nutrition optimization, decubitus precautions heel/sacrum) - PT/OT; WBAT - Dispo planning
[2020-07-11 08:18] LABS: HEMATOCRIT 25.8 % (32.4-45.2); HEMOGLOBIN 8.3 GM/dl (10.7-15.3); MCH 26.1 pg (25.7-33.7); MCHC 32.2 g/dl (32.0-36.0); MEAN CELL VOLUME 81.1 fl (80-96); PLATELET COUNT 280 K/MM3 (134-434); RBC 3.18 M/mm3 (3.60-5.2); RDW 16.4 % (11.6-15.6)
[2020-07-11 08:22] LABS: CALCIUM 8.4 mg/dl (8.5-10); CREATININE 0.8 mg/dl (0.55-1.3)
[2020-07-11] MEDS ORDERED: ACETAMINOPHEN 325 MG TABLET (FP) PO SCH (09:00)
[2020-07-11] MEDS: GABAPENTIN 300 MG CAPSULE PO SCH ×2 (09:38→21:31)
[2020-07-11] MEDS: MULTIVITAMINS (DAILY MVI) TABLET (FP) PO SCH (09:38)
[2020-07-11] MEDS: ASPIRIN 325 MG TABLET PO SCH ×2 (09:38→21:30)
[2020-07-11] MEDS: oxyCODONE HCL 10 MG SUSTAINED ACTING TABLET PO SCH ×2 (09:38→21:32)
[2020-07-11] MEDS: PANTOPRAZOLE 40 MG TABLET PO SCH (09:38)
[2020-07-11] MEDS: CELECOXIB 200 MG CAPSULE PO SCH ×2 (09:39→21:31)
[2020-07-11] MEDS: SENNOSIDES/DOCUSATE COMBO (SENNA PLUS) TABLET (UD) PO SCH ×2 (09:39→21:31)
[2020-07-11] MEDS: ACETAMINOPHEN 500 MG TABLET (FP) PO SCH ×2 (09:46→17:45)
[2020-07-11] MEDS: LISINOPRIL 10 MG TABLET PO SCH (09:52)
--- NOTE | 2020-07-11 11:26 | PN ---
Physical Exam: SUBJECTIVE: Patient seen and examined in chair, Reports pain with ambulation and doesnt think current pain meds are helping. Doesnt think she will be able to go home today. OBJECTIVE: Vital Signs Period Temp Pulse Resp BP Sys/Mallory Pulse Ox Last 24 Hr 98.1 F-99.8 F 96-108 17-19 108-134/43-58 94-100 GENERAL: The patient is awake, alert, and fully oriented, in no acute distress. HEAD: Normal with no signs of trauma. EYES: PERRL. ENT: Ears normal, nares patent, moist mucous membranes. NECK: Trachea midline, full range of motion, supple. LUNGS: Breath sounds equal, clear to auscultation bilaterally, no wheezes, no crackles, no accessory muscle use. HEART: Regular rate and rhythm, S1, S2 without murmur, rub or gallop. ABDOMEN: Soft, nontender, nondistended, normoactive bowel sounds. EXTREMITIES: 2+ pulses, warm, well-perfused, no edema. R leg 5/5 strength sensation intact PSYCH: Normal mood, normal affect. SKIN: Warm, dry, normal turgor, no rashes or lesions noted Laboratory Results - last 24 hr 07/11/20 07/11/20 07:17 07:17 WBC 12.0 H RBC 3.18 L Hgb 8.3 L Hct 25.8 L MCV 81.1 MCH 26.1 MCHC 32.2 RDW 16.4 H Plt Count 280 MPV 9.0 Sodium 136 Potassium 4.0 Chloride 99 Carbon Dioxide 30 Anion Gap 7 L BUN 23.0 H Creatinine 0.8 Est GFR (CKD-EPI)AfAm 87.80 Est GFR (CKD-EPI)NonAf 75.75 Random Glucose 111 H Calcium 8.4 L Active Medications Generic Name Dose Route Start Last Admin Trade Name Freq PRN Reason Stop Dose Admin Acetaminophen 1,000 mg 07/11/20 09:00 07/11/20 09:46 Tylenol - PO 07/14/20 08:48 1,000 mg Q8H GAYATRI Administration Al Hydroxide/Mg Hydroxide 30 ml 07/09/20 14:13 Mylanta Oral Suspension - PO Q4H PRN DYSPEPSIA Aspirin 325 mg 07/10/20 22:00 07/11/20 09:38 Asa - PO 325 mg BID GAYATRI Administration Atorvastatin Calcium 20 mg 07/10/20 22:00 07/10/20 21:27 Lipitor - PO 20 mg HS GAYATRI Administration Celecoxib 200 mg 07/09/20 22:00 07/11/20 09:39 Celebrex - PO 200 mg BID GAYATRI Administration Gabapentin 300 mg 07/09/20 22:00 07/11/20 09:38 Neurontin - PO 07/12/20 21:59 300 mg BID GAYATRI Administration Lisinopril 10 mg 07/10/20 10:00 07/11/20 09:52 Prinivil PO Not Given DAILY [facility] Multivitamins/Minerals/Vitamin C 1 tab 07/10/20 10:00 07/11/20 09:38 Tab-A-Vit - PO 1 tab DAILY [facility] Administration Ondansetron HCl 4 mg 07/09/20 14:13 07/09/20 14:15 Zofran Injection IVPUSH 4 mg Q6H PRN Administration NAUSEA Oxycodone HCl 5 mg 07/09/20 16:41 07/11/20 06:00 Roxicodone - PO 5 mg Q3H PRN Administration PAIN LEVEL 1-5 Oxycodone HCl 10 mg 07/09/20 16:41 07/10/20 23:23 Roxicodone - PO 10 mg Q3H PRN Administration PAIN LEVEL 6-10 Oxycodone HCl 10 mg 07/11/20 10:00 07/11/20 09:38 Oxycontin - PO 10 mg BID [facility] Administration Pantoprazole Sodium 40 mg 07/10/20 10:00 07/11/20 09:38 Protonix - PO 40 mg DAILY [facility] Administration Senna/Docusate Sodium 2 tablet 07/09/20 22:00 07/11/20 09:39 Pericolace - PO 2 tablet BID [facility] Administration ASSESSMENT/PLAN: 69 year-old female with a PMH significant for HTN, HLD, GERD, and right knee osteoarthritis s/p right total knee arthroplasty. Right total knee arthroplasty --POD #2 --perioperative antibiotics per surgery --pain management per surgery, on PO regimen (Oxycontin added per Ortho for better pain control) --ASA 325mg BID --protonix --bowel regimen --incentive spirometry Anemia --repeat CBC this afternoon --tranfuse for hgb <8 (11 on admission) Hypertension --BP on low side, hold lisinopril; hold HCTZ Hyperlipidemia -continue atorvastatin GERD --protonix FEN Fluids: d/c LR@75mL/hr Electrolytes: replete as indicated Nutrition: regular diet DVT prophylaxis: OOB, ambulation, SCDs, TEDs, ASA 325mg BID Physical therapy Dispo: continues to require inpatient care. Full code. Visit type - Emergency Visit Emergency Visit: No - New Patient This patient is new to me today: No - Critical Care Critical Care patient: No - Discharge Referral Referred to [facility] Med [facility] No - Medication Review Med list reviewed for High Risk Meds patients 65 and older: Yes (s/p ortho sx pain med still required for uncontrolled pain)
[2020-07-11 15:10] LABS: BASO % 2.5 % (0-2.0); EOS % 0.3 % (0-4.5); HEMATOCRIT 26.5 % (32.4-45.2); HEMOGLOBIN 8.3 GM/dl (10.7-15.3); LYMPH % 12.1 % (8-40); MCH 25.5 pg (25.7-33.7); MCHC 31.3 g/dl (32.0-36.0); MEAN CELL VOLUME 81.4 fl (80-96); MEAN PLT VOLUME 8.8 fl (7.5-11.1); MONO % 9.7 % (3.8-10.2); NEUT % 75.4 % (42.8-82.8); PLATELET COUNT 297 K/MM3 (134-434); RBC 3.26 M/mm3 (3.60-5.2); RDW 16.2 % (11.6-15.6); WHITE BLOOD COUNT 12.8 K/mm3 (4.0-10.8)
--- NOTE | 2020-07-11 16:53 | PATH ---
Surgical Pathology Report Patient Name: MARCELLA SCOTT Med. Rec. 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 DEGENERATIVE JOINT DISEASE. Comment: Findings discussed with Dr. Phan on 07/16/20. Electronically Signed Senait Barcenas M.D. Amendments Amended: 07/17/2020 Previous Signout Date: 07/11/2020 Comment: Diagnosis being amended based on additional tissue submitted Gross Description Received in formalin labeled "right knee bones," is a 12.0 x 9.0 x 1.8 cm aggregate of multiple portions of bone and soft tissue. The tibial plateau measures 7.4 x 4.8 x 1.5 cm. There are multiple areas of eburnation present, measuring up to 2.2 cm in greatest dimension. The remaining articular surfaces are stern-brown and focally granular. The underlying trabecular bone is yellow and hard. [employer] sections are submitted in four cassettes, following decalcification. 07/10/2020 saudi07/10/2020
[2020-07-11] MEDS: ATORVASTATIN CA 20 MG TABLET (FP) PO SCH (21:32)
[2020-07-12] MEDS: ACETAMINOPHEN 500 MG TABLET (FP) PO SCH ×2 (00:17→09:39)
[2020-07-12 06:52] VITALS: BP 118/66; PULSE 95; TEMP 98.6
--- NOTE | 2020-07-12 08:00 | PN ---
Progress Note (short form) - Note Progress Note: ORTHOPEDIC SURGERY PROGRESS NOTE Department of Orthopedic Surgery SUBJECTIVE No acute events overnight. No complaints currently. Denies chest pain, shortness of breath, or calf pain. No nausea or vomiting. Tolerating oral intake. Pain control improved. PHYSICAL EXAMINATION General: Alert, oriented, cooperative and no distress. Lower Extremity: Dressing/brace intact; No drainage. Skin intact, no lesions, rashes or ulcers noted. Muscle mass equal and symmetric to contralateral side. No atrophy noted. No masses or effusions noted. EHL/TA/GS motor intact; SILT distally; 2+ DP pulses; Cap refill brisk. DVT Exam: No evidence of DVT seen on physical exam; No cords or calf tenderness; No significant calf/ankle edema. Intake & Output 07/10/20 07/11/20 07/12/20 23:59 23:59 23:59 Intake Total 1100 1850 Output Total 300 Balance 800 1850 Intake: IV 750 Lactated Ringers Solution 750 1,000 ml @ 75 mls/hr IV ASDIR GAYATRI Rx#:[id number] Oral 1100 1100 Output: Urine 300 Void 300 Other: Voiding Method Toilet Toilet Toilet # Unmeasured Voids Void 1 2 Bowel Movement No No Active Medications Generic Name Dose Route Start Last Admin Trade Name Freq PRN Reason Stop Dose Admin Acetaminophen 1,000 mg 07/11/20 09:00 07/12/20 00:17 Tylenol - PO 07/14/20 08:48 1,000 mg Q8H GAYATRI Administration Al Hydroxide/Mg Hydroxide 30 ml 07/09/20 14:13 Mylanta Oral Suspension - PO Q4H PRN DYSPEPSIA Aspirin 325 mg 07/10/20 22:00 07/11/20 21:30 Asa - PO 325 mg BID GAYATRI Administration Atorvastatin Calcium 20 mg 07/10/20 22:00 07/11/20 21:32 Lipitor - PO 20 mg HS GAYATRI Administration Celecoxib 200 mg 07/09/20 22:00 07/11/20 21:31 Celebrex - PO 200 mg BID GAYATRI Administration Gabapentin 300 mg 07/09/20 22:00 07/11/20 21:31 Neurontin - PO 07/12/20 21:59 300 mg BID GAYATRI Administration Lisinopril 10 mg 07/10/20 10:00 07/11/20 09:52 Prinivil PO Not Given DAILY [facility] Multivitamins/Minerals/Vitamin C 1 tab 07/10/20 10:00 07/11/20 09:38 Tab-A-Vit - PO 1 tab DAILY GAYATRI Administration Ondansetron HCl 4 mg 07/09/20 14:13 07/09/20 14:15 Zofran Injection IVPUSH 4 mg Q6H PRN Administration NAUSEA Oxycodone HCl 5 mg 07/09/20 16:41 07/11/20 21:31 Roxicodone - PO 5 mg Q3H PRN Administration PAIN LEVEL 1-5 Oxycodone HCl 10 mg 07/09/20 16:41 07/11/20 15:10 Roxicodone - PO 10 mg Q3H PRN Administration PAIN LEVEL 6-10 Oxycodone HCl 10 mg 07/11/20 10:00 07/11/20 21:32 Oxycontin - PO 10 mg BID GAYATRI Administration Pantoprazole Sodium 40 mg 07/10/20 10:00 07/11/20 09:38 Protonix - PO 40 mg DAILY GAYATRI Administration Senna/Docusate Sodium 2 tablet 07/09/20 22:00 07/11/20 21:31 Pericolace - PO 2 tablet BID GAYATRI Administration Vital Signs (last) Temp Pulse Resp BP Pulse Ox 98.6 F 95 H 19 118/66 97 07/12/20 06:52 07/12/20 06:52 07/12/20 06:52 07/12/20 06:52 07/12/20 06:52 ASSESSMENT AND PLAN Dione Parnell is a 69 year old female status post right total knee arthroplasty. POD#3. - FU AM labs - FU Final Path report - Pain control - DVT prophylaxis - Ice/Elevation - Elevate HOB, encourage oral intake - Appreciate medical management (Nutrition optimization, decubitus precautions heel/sacrum) - PT/OT; WBAT - Dispo planning
[2020-07-12 08:02] LABS: BASO % 0.5 % (0-2.0); EOS % 1.6 % (0-4.5); HEMATOCRIT 24.8 % (32.4-45.2); HEMOGLOBIN 7.8 GM/dl (10.7-15.3); MCH 25.9 pg (25.7-33.7); MCHC 31.6 g/dl (32.0-36.0); MEAN CELL VOLUME 81.8 fl (80-96); MEAN PLT VOLUME 8.7 fl (7.5-11.1); MONO % 9.5 % (3.8-10.2); NEUT % 76.4 % (42.8-82.8); PLATELET COUNT 293 K/MM3 (134-434); RBC 3.03 M/mm3 (3.60-5.2); RDW 16.3 % (11.6-15.6); WHITE BLOOD COUNT 9.9 K/mm3 (4.0-10.8)
[2020-07-12 08:09] LABS: ALBUMIN 2.8 g/dl (3.4-5.0); BILIRUBIN,TOTAL 0.5 mg/dl (0.2-1); CALCIUM 8.4 mg/dl (8.5-10); CREATININE 0.7 mg/dl (0.55-1.3); MAGNESIUM 1.9 mg/dL (1.8-2.4); PHOSPHOROUS 1.7 mg/dl (2.5-4.9); POTASSIUM 4.2 mmol/L (3.5-5.1); TOT PROT 5.8 g/dl (6.4-8.2)
[2020-07-12] MEDS: oxyCODONE HCL 5 MG TABLET PO PRN ×2 (08:51→11:00)
[2020-07-12] MEDS: GABAPENTIN 300 MG CAPSULE PO SCH (09:38)
[2020-07-12] MEDS: PANTOPRAZOLE 40 MG TABLET PO SCH (09:38)
[2020-07-12] MEDS: CELECOXIB 200 MG CAPSULE PO SCH (09:38)
[2020-07-12] MEDS: SENNOSIDES/DOCUSATE COMBO (SENNA PLUS) TABLET (UD) PO SCH (09:38)
[2020-07-12] MEDS: ASPIRIN 325 MG TABLET PO SCH (09:38)
[2020-07-12] MEDS: LISINOPRIL 10 MG TABLET PO SCH (09:39)
[2020-07-12] MEDS: MULTIVITAMINS (DAILY MVI) TABLET (FP) PO SCH (09:39)
--- NOTE | 2020-07-12 12:12 | DS ---
Physical Exam: SUBJECTIVE: Patient seen and examined. Working with PT. OBJECTIVE: Vital Signs Period Temp Pulse Resp BP Sys/Mallory Pulse Ox Last 24 Hr 98.6 F-99.5 F 95-106 19-19 110-122/49-66 96-99 PHYSICAL EXAM GENERAL: The patient is awake, alert, and fully oriented, in no acute distress. HEAD: Normal with no signs of trauma. EYES: PERRL, extraocular movements intact, sclera anicteric, conjunctiva clear. LUNGS: Breath sounds equal, clear to auscultation bilaterally, no wheezes, no crackles, no accessory muscle use. HEART: Regular rate and rhythm, S1, S2 RLE: Surgicel dressings c/d/i, doing PT chair exercises NEUROLOGICAL: Cranial nerves II through XII grossly intact. Normal speech, gait not observed. LABS Laboratory Results - last 24 hr 07/11/20 07/12/20 07/12/20 15:00 07:33 07:33 WBC 12.8 H 9.9 RBC 3.26 L 3.03 L Hgb 8.3 L 7.8 L Hct 26.5 L 24.8 L MCV 81.4 81.8 MCH 25.5 L 25.9 MCHC 31.3 L 31.6 L RDW 16.2 H 16.3 H Plt Count 297 293 MPV 8.8 8.7 Absolute Neuts (auto) 9.7 7.6 Neutrophils % 75.4 76.4 Lymphocytes % 12.1 12.0 Monocytes % 9.7 9.5 Eosinophils % 0.3 1.6 Basophils % 2.5 H 0.5 Sodium 138 Potassium 4.2 Chloride 99 Carbon Dioxide 32 Anion Gap 7 L BUN 18.0 Creatinine 0.7 Est GFR (CKD-EPI)AfAm 103.18 Est GFR (CKD-EPI)NonAf 89.03 Random Glucose 102 Calcium 8.4 L Phosphorus 1.7 L Magnesium 1.9 Total Bilirubin 0.5 AST 22 ALT 12 L Alkaline Phosphatase 88 Total Protein 5.8 L Albumin 2.8 L HOSPITAL COURSE: Date of Admission:07/09/20 Date of Discharge: 07/12/20 69 year-old female with a PMH significant for HTN, HLD, GERD, and right knee osteoarthritis s/p right total knee arthroplasty. Right total knee arthroplasty --perioperative antibiotics per surgery --pain management per surgery, on PO regimen --ASA 325mg BID x 6 weeks Anemia --Hbg 7.8 on date of discharge but asymptomatic, hemodynamically stable, surgery aware, no transfusion Minutes to complete discharge: 35 Discharge Summary Problems reviewed: Yes Reason For Visit: RIGHT KNEE OA Condition: Improved - Instructions Diet, Activity, Other Instructions: Please follow the detailed discharge instructions provided to you by Dr. Phan. Referrals: Vic Phan DO [Staff Physician] - Disposition: HOME - Home Medications Comprehensive Discharge Medication List: Ambulatory Orders Acetaminophen [Tylenol] 650 mg PO ASDIR PRN 07/05/20 Atorvastatin Ca [Lipitor] 20 mg PO DAILY 07/05/20 Gabapentin 300 mg PO TID PRN 07/05/20 Lisinopril/Hydrochlorothiazide [Lisinopril-Hctz 10-12.5 mg Tab] 1 each PO DAILY 07/05/20 Mv-Mn/FA/Coq10/Lycopene/Lutein [Theragran-M Premier 50+ Caplet] 1 each PO BID 07/05/20 Omeprazole 20 mg PO DAILY 07/05/20 Aspirin [ASA -] 325 mg PO BID tablet 07/12/20 Prescription Drug Monitoring Program (I-STOP) results: I-STOP not reviewed This patient is new to me today: No Emergency Visit: No Critical Care patient: No - Discharge Referral Referred to [facility] Med P.C[facility] No
[2020-07-12] MEDS ORDERED: PT OWN MED DRAWER 7, Y5N ONE (13:46)
== END 2020-07-12 15:06 | disposition home or self-care (01) | DRG 470 ==
LOC: FM/S 08:06
PROVIDERS: ADMIT Orthopaedic Surgery; ATTEND Nurse Practitioner Acute Care
PROC: 8E0Y0CZ Robotic Assisted Procedure of Lower Extremity, Open Approach (ICD-10-PCS; 2020-07-09)
PROC: 0SRC0J9 Replacement of Right Knee Joint with Synthetic Substitute, Cemented, Open Approach (ICD-10-PCS; principal; 2020-07-09 10:57)
DX: M17.11 Unilateral primary osteoarthritis, right knee (principal); I10 Essential (primary) hypertension; E78.5 Hyperlipidemia, unspecified; K21.9 Gastro-esophageal reflux disease without esophagitis; M21.161 Varus deformity, not elsewhere classified, right knee
CPT/HCPCS: 36415; 73560-TC-RT-FY; 80048; 80053; 83735; 84100; 85025; 85027; 88304-TC; 88311-TC; 94760; 97116-GP; 97163-GP; J0131